=== PATIENT | female | born 1970 | race Caucasian/White ===

== ENCOUNTER → 2016-12-01 | Outpatient (CLI) | payer OTHER ==
[~2016-12-01] MED LIST: ADULT LOW DOSE81 MG PO; CLARINEX5 MG PO; CRESTOR10 MG PO; CYMBALTA60 MG PO; EFFEXOR XR37.5 MG PO; FISH OIL 1,0001 EAC5 PO; LISINOPRIL20 MG PO; MICARDIS40 MG PO; MULTIVITAMINS PO; NEXIUM40 MG PO; ZOCOR80 MG PO
== END ==
LOC: MRI 10:21
DX: M51.26 Other intervertebral disc displacement, lumbar region (principal); I10 Essential (primary) hypertension; E55.9 Vitamin D deficiency, unspecified; F32.1 Major depressive disorder, single episode, moderate; F41.1 Generalized anxiety disorder; D50.9 Iron deficiency anemia, unspecified; M25.559 Pain in unspecified hip; J43.1 Panlobular emphysema; G47.35 Congenital central alveolar hypoventilation syndrome

== ENCOUNTER 2018-10-11 05:31 | Day surgery (SDC) | payer OTHER ==
[~2018-10-11] VITALS: Ht 162.6 cm; Wt 83.9 kg
--- NOTE | ~2018-10-11 | O ---
[facility] [place] [address] OPERATIVE REPORT Name: ANDREW LOPEZ Room #: 150-1 [facility] M.R.#: [id number] Admission: 10/11/18 ������������������ Attend Phys: Isac Moya MD Discharge: ������������������ Date of : 70 Report #: [id number] THIS REPORT FOR: //name// CC: Isac Moya [facility] DATE OF SERVICE: 10/11/2018 PREOPERATIVE DIAGNOSES: Menorrhagia, obesity. POSTOPERATIVE DIAGNOSES: Menorrhagia, obesity, cervical stenosis, uterine fibroid. SURGEON: Isac Moya MD CREATIVE PROJECT MANAGER: None. ANESTHESIA: General. OPERATION: Dilatation and curettage, hysteroscopic hydrothermal endometrial ablation, exam under anesthesia. ESTIMATED BLOOD LOSS: 10 mL. SPECIMEN: Endometrial curettings. COMPLICATIONS: None. COMMENTS: Due to obesity and retroflexed uterus, accessing, visualizing the cervix was extremely difficult. Cervical stenosis also contributed to a long and difficult case. FINDINGS: Pelvic exam under anesthesia revealed a normal sized, retroflexed uterus and a deep vagina. The cervix exhibited a marked stenosis and was very difficult to access due to the depth of the vagina and her nulliparous state. Hysteroscopically, there was a sessile submucosal fibroid on the right side, posterior aspect of the uterine corpus that appeared approximately 2 cm in diameter. There were no endometrial polyps. DESCRIPTION OF PROCEDURE: The patient was seen in the preoperative holding area where consent was obtained for surgery and postop followup was reviewed. She was then taken to the operating room and placed under general anesthesia, prepped and draped in sterile fashion in a modified dorsal lithotomy position. Pelvic exam under anesthesia was carried out. A large selection of speculums was used in preparation for the case and one chosen that worked well and was a long narrow speculum. The cervix was way high in the vagina, which was very [facility] [address] [place] [address] OPERATIVE REPORT Name: ANDREW LOPEZ [id number] Admission: 10/11/18 ������������������ Attend Phys: Isac Moya MD Discharge: ������������������ Date of : 70 Report #: [id number] deep and found slightly to the right side of midline. There was great difficulty in localizing the cervix and grasping the cervix with the tenaculum. This was performed under direct hysteroscopic vision. There was some great difficulty in localizing the external os, but eventually was performed and cervical stenosis was bypassed under direct hysteroscopic vision. Uterus was then sounded to a depth of 9 cm. Hanks dilators were progressively used to dilate the cervix to a #17 dilator. A smooth sharp curette was then used to obtain scant endometrial curettings from the entirety of the endometrial cavity. These were sent for pathology. There was some difficulty inserting the hydrothermal ablation hysteroscope through the external os to the level of the internal os due to difficulty in bypassing the stenosis and regrasping the cervix. However, the hysteroscopic hydrothermal ablation unit was eventually placed properly with the tip just up inside the uterine cavity just beyond the level of the internal os. The saline infusion heating mechanism was then activated and the saline temperature gradually increased to the appropriate level, at which time it was left at that level for 10 minutes under direct hysteroscopic visualization. Once 10 minutes were up, the saline inside the uterine cavity was gradually cooled down to room temperature; at which time, the hysteroscopic hydrothermal ablation unit was removed. The tenaculums were also removed. Hemostasis was achieved with a sponge on a stick, pressure on the cervix. All instrument counts were correct. The patient was then brought out of general anesthesia and taken to recovery room with IV infusing well. She will be discharged home later that day to be followed up as outpatient in the office with Dr. Moya in 1 week's time. Ibuprofen is to be taken for pain. She did receive Toradol and 1 dose of tramadol in the recovery room. ��������������������������������������������� ���������������������������������������� By: ��������������������������������������������� 1205 1316 Isac Moya MD /nt
[~2018-10-11 05:31] MED LIST changes: +BEET ROOT PO; +CRESTOR20 MG PO; +D3 + K2 DOTS 11 EACH PO; +EFFEXOR XR150 MG PO; +FLONASE 0.05%50 MCG NASAL; +IBUPROFEN 200200 M1 PO; +K2 PLUS D3 TAB1 EACH PO; +LISINOPRIL10 MG PO; +MAGNESIUM500 MG PO; +PROBIOTIC1 EAC1 PO; +PROTONIX40 M1 PO; +SYMBICORT160 MCG/4. INH; +TOPROL XL25 MG PO; +VENTOLIN HFA 1818 GM INH; +ZANTAC300 MG PO
[2018-10-11 07:16] LABS: HEMATOCRIT 39.3 % (37.0-47.0); HEMOGLOBIN 13.3 gm/dL (12.0-15.0); MCH 29.1 pg (26.0-34.0); MCHC 33.8 g/dL (28.0-37.0); MCV 86.1 fL (80.0-100.0); RBC 4.56 mil/uL (4.20-5.00); RDW 15.3 % (10.5-14.5); WBC 15.6 thou/uL (4.0-11.0)
[2018-10-11 08:10] VITALS: BP 117/59
[2018-10-11] MEDS ORDERED: IBUPROFEN 200200 M1 PO (11:39)
[2018-10-11 12:04] VITALS: BP 117/59
--- NOTE | 2018-10-12 09:32 | EKG ---
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 : 1970 Requested By: Isac Moya Order Number: [id number] MD: Mitch Steven Measurements Intervals [place] Rate: 77 P: 30 NM: 161 QRS: 36 QRSD: 98 T: 31 QT: 382 QTc: 433 Interpretive Statements Sinus rhythm Abnormal R-wave progression, early transition Baseline wander in lead(s) III No previous ECG available for comparison Electronically Signed On 10-12-2018 9:31:53 CDT by Mitch Steven [email or web address] ��������������������������������������������� <ELECTRONICALLY SIGNED> ���������������������������������������� By: Mitch Steven MD, [facility] ��������������������������������������������� 10/12/18 0931 8 8 Mitch Steven MD, [facility] /EPI
--- NOTE | 2018-10-12 14:06 | PATH ---
[facility] [place] [address] PATHOLOGY RPT PROCEDURE Name: ANDREW AVELAR Room #: DEP [facility] M.R.#: [id number] ������������������ Admission: 10/11/18 ������������������ Date of : 70 Discharge: 10/11/18 Report #: [id number] Path Case #: [id number] [facility] Accession Number: [id number] . 01 Material submitted: . endometrium - ENDOMETRIAL CURETTINGS . 01 Clinical history: . Pre-op diagnosis: Menorrhagia Post-op diagnosis: Cervical stenosis, obesity, fibroid . 02 Diagnosis: Uterus, endometrial curettings: - Disordered proliferative endometrium. - Negative for hyperplasia, atypia or malignancy. (IUV:gang boss; 10/12/2018) MBR/10/12/2018 . 02 Comment: Findings are suggestive of anovulatory cycles or unopposed estrogen exposure. Please correlate clinically. (IUV:gang boss; 10/12/2018) . 02 Electronically signed: . Brittney Kamara MD, Pathologist NPI- [id number] . 01 Gross description: . The specimen is received in formalin, labeled "Andrew Avelar, endometrial curettings". Received are multiple segments of red-brown membranous tissue admixed with mucoid material measuring 2.2 x 1.6 x 0.3 cm in aggregate dimensions. The specimen is filtered and entirely submitted in cassette A1. (CAA; 10/11/2018) QAC/QAC . 02 Pathologist provided ICD-10: N85.9 . 02 CPT . 515760 Specimen Comment: A courtesy copy of this report has been sent to Specimen Comment: [phone], . Specimen Comment: Report sent to / DR GUILLEN Performed at: [address], [place] [id number] [address] [place] [address] PATHOLOGY RPT PROCEDURE Name: ANDREW AVELAR Room #: DEP [facility] Prema.#: [id number] ������������������ Admission: 10/11/18 ������������������ Date of : 70 Discharge: 10/11/18 Report #: [id number] Path Case #: [id number] MD Octavio Lanza MD Phone: [phone] Performed at: [address] [place] [id number] MD Brittney Kamara MD Phone: [phone]
== END 2018-10-11 12:47 | disposition home or self-care (01) ==
LOC: OR 05:31 → TBA 05:31 → OR 06:33
PROVIDERS: Obstetrics & Gynecology
DX: N85.9 Noninflammatory disorder of uterus, unspecified (principal); N92.0 Excessive and frequent menstruation with regular cycle; D25.9 Leiomyoma of uterus, unspecified; E66.09 Other obesity due to excess calories; I10 Essential (primary) hypertension; E78.5 Hyperlipidemia, unspecified; D64.9 Anemia, unspecified; F32.9 Major depressive disorder, single episode, unspecified; F41.9 Anxiety disorder, unspecified; G47.33 Obstructive sleep apnea (adult) (pediatric); K21.9 Gastro-esophageal reflux disease without esophagitis; J43.9 Emphysema, unspecified; F17.210 Nicotine dependence, cigarettes, uncomplicated; Z98.51 Tubal ligation status; Z98.890 Other specified postprocedural states; Z79.899 Other long term (current) drug therapy; Z88.2 Allergy status to sulfonamides; Z88.8 Allergy status to other drugs, medicaments and biological substances; Z68.31 Body mass index [BMI] 31.0-31.9, adult
CPT/HCPCS: 50010; 50101; 50601; 57160; 62110; 62900; 70005